=== PATIENT | male | born 1985 | race Caucasian/White ===

== ENCOUNTER 2018-01-20 13:34 | Inpatient (IN) | payer OTHER ==
[~2018-01-20] VITALS: Ht 177.8 cm; Wt 76.7 kg
[~2018-01-20 13:34] MED LIST: AUGMENTIN 875 M1 TAB PO; AUGMENTIN 875-1 EACH PO; AUGMENTIN250 MG/51 PO; BENADRYL E12.5 MG/5 PO; Benadryl PO; CLINDAMYCIN HC300 MG PO; DILANTIN100 M1 PO; DILANTIN50 MG PO; KEFLEX 250MG C250 MG PO; KEPPRA100 MG/ML PO; PHENOBARBITAL32.4 MG PO; PHENYTOIN PO; PREDNISONE 10MG10 M1 PO; PRELONE15 MG/5 ML PO; VIBRAMYCIN50 MG/5 ML PO; ZANTAC25 MG/ML PO; [UNRECOGNIZED DRUG - OTHER] PO
--- NOTE | 2018-01-20 13:48 | ED AMS/SEIZURE/WEAK/DIZZY ---
See Addendum History of Present Illness General Chief Complaint: Seizure Stated Complaint: BIBA SEIZURE Source: family, old records, EMS Exam Limitations: COGNITIVE IMPAIRMENT AND ACTIVE SEIZURE Vital Signs & Intake/Output Vital Signs & Intake/Output Vital Signs Date Time Temp Pulse Resp B/P B/P Pulse O2 O2 Flow FiO2 Mean Ox Delivery Rate 01/20 1806 97.9 75 18 147/81 99 Nasal 2.0L Cannula 01/20 1532 98.3 76 18 136/84 98 Nasal 2.0L Cannula 01/20 1340 98 Non ReBreather 01/20 1336 96.5 92 20 171/95 98 Non 10L ReBreather Allergies Coded Allergies: ceftriaxone (BLISTERS 04/23/16) cefuroxime (From Ceftin) (BLISTERS 04/23/16) cephalexin (BLISTERS 04/23/16) clindamycin (RASH, BLISTERS 04/23/16) Reconcile Medications Levetiracetam (Keppra) 100 MG/ML SOLUTION 3 TSP PO BID SEIZURES (Reported) Phenobarbital 32.4 MG TABLET 4 TAB PO QAM SEIZURE (Reported) Phenobarbital 32.4 MG TABLET 3 TAB PO QPM SEIZURES (Reported) Phenytoin (Dilantin) 100 MG CAPSULE 1.5 TAB PO QAM SEIZURE Phenytoin (Dilantin) 100 MG CAPSULE 2 TAB PO QPM SEIZURE Triage Nurses Notes Reviewed? yes HPI: Patient has a history of recurrent seizures. Patient had a seizure on Friday and then again on Friday. His neurologist has increased his Dilantin dose. Patient received the extra Dilantin in yesterday and again this morning. Patient again had a grand mal seizure. Patient received 2 mg IM by EMS. Patient was still actively seizing upon arrival to the emergency department. An IV was inserted and 2 mg IV of Ativan was delivered and the seizures slowly stopped. His mother, who is his caregiver, states that this seizure was similar to prior seizures. There is no known trauma. Her concern is that earlier today he was having episodic confusion. This was unusual for him. She states that they would be having a conversation and then he would just say a sentence that had nothing to do with what they were talking about. (Chase POLO,Gary Zuleta) Past History Travel History Traveled to [place] past 21 day No Medical History Any Pertinent Medical History? 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 Hx Contributory? No (Chase POLO,Gary Zuleta) Review of Systems Review of Systems Constitutional: Reports: see HPI. (Chase POLO,Gary Zuleta) Physical Exam Physical Exam General Appearance: well developed/nourished Head: atraumatic Eyes: Bilateral: PERRL. Ears, Nose, Throat: normal pharynx, normal ENT inspection Neck: normal inspection, supple, full range of motion Respiratory: normal breath sounds, chest non-tender, no respiratory distress, lungs clear Cardiovascular: regular rate/rhythm, normal peripheral pulses Gastrointestinal: normal bowel sounds, soft Extremities: normal range of motion Neurologic/Psych: awake Core Measures ACS in differential dx? No CVA/TIA Diagnosis No Sepsis Present: No Sepsis Focused Exam Completed? No (Chase POLO,Gary Zuleta) Progress Differential Diagnosis: electrolyte imbalance, seizure disorder Plan of Care: Orders Procedure Date/time Status Add-on Test (ER Only) 01/20 1515 Active DILANTIN 01/20 1347 Complete COMPREHENSIVE METABOLIC PANEL 01/20 1347 Complete CBC WITHOUT DIFFERENTIAL 01/20 1347 Complete Laboratory Tests 01/20/18 1356: Anion Gap 13, Estimated GFR > 60, BUN/Creatinine Ratio 8.0, Glucose 93, Calcium 8.9, Total Bilirubin 0.4, AST 20, ALT 22, Alkaline Phosphatase 90, Total Protein 7.5, Albumin 4.2, Globulin 3.3, Albumin/Globulin Ratio 1.3, CBC w Diff NO MAN DIFF REQ, RBC 4.46 L, MCV 89.5, MCH 29.8, MCHC 33.3, RDW 13.9, MPV 11.6 H, Gran % 76.5 H, Lymphocytes % 14.5 L, Monocytes % 8.3, Eosinophils % 0.4, Basophils % 0.3, Absolute Granulocytes 6.5, Absolute Lymphocytes 1.2, Absolute Monocytes 0.7 H, Absolute Eosinophils 0, Absolute Basophils 0, Phenytoin 11.6 01/20/18 1347: Ref Lab Test Result Pending, Levetiracetam Pending Initial ED EKG: none Hand-Off Endorsed To: Ankit Haney DO Endorsed Time: 1500 Pending: other (RE-EVAL) Comments: DR. LEON IS AT THE BEDSIDE. (Chase POLO,Gary Zuleta) Departure Departure Disposition: STILL A PATIENT Condition: Stable Clinical Impression Primary Impression: Seizure Referrals: Edmar Mtz MD Patient Has No Primary Care Dr (PCP/Family) Departure Forms: Customer Survey General Discharge Information (Chase POLO,Gary Zuleta) Departure Comments 01/20/18 6:32 PM The patient was signed out to me by Dr. Stone at 3 PM. He status post seizure. He was seen and evaluated by his neurologist. He received multiple doses of Ativan. When he is awake alert and ambulating he will be discharged and follow-up with the neurologist. (Ankit Haney DO)
[2018-01-20 14:24] LABS: ABSOLUTE BASOPHIL COUNT 0 /CUMM (0.0-0.2); ABSOLUTE EOSINOPHIL COUNT 0 /CUMM (0.0-0.7); ABSOLUTE GRANULOCYTE CT 6.5 /CUMM (1.4-6.5); ABSOLUTE LYMPH COUNT 1.2 /CUMM (1.2-3.4); ABSOLUTE MONOCYTE COUNT 0.7 /CUMM (0.10-0.60); BASOPHIL % 0.3 % (0.0-2.0); EOSINOPHIL % 0.4 % (0-5); GRANULOCYTE % 76.5 % (42.2-75.2); MEAN CORPUSCULAR HGB 29.8 PG (27.0-31.0); MEAN CORPUSCULAR HGB CONC 33.3 G/DL (33.0-37.0); MEAN CORPUSCULAR VOLUME 89.5 FL (80.0-94.0); MEAN PLATELET VOLUME 11.6 FL (7.4-10.4); PLATELET COUNT 228 /CUMM (130-400); RBC DISTRIBUTION WIDTH 13.9 % (11.5-14.5); RED BLOOD CELL CT 4.46 /CUMM (4.70-6.10); WHITE BLOOD CELL COUNT 8.5 /CUMM (4.8-10.8)
[2018-01-20 14:26] LABS: HEMATOCRIT 39.9 % (42-52)
--- NOTE | 2018-01-20 15:01 | Cons- Neurology ---
General Information and HPI Consulting Request Date of Consult: 01/20/18 Requested By: Gary Stone M.D. 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 The seizure was arrested with Versed and lorazepam, he was somewhat lethargic the next day but improved by evening when he had another seizure for which she was seen here at the [facility] ER. Dilantin level at that time was 9 and his dose increased by 50 mg. His postictal state cleared and by today he was in his usual form able to attend his work program and again eating and drinking normally but another seizure occurred. This one stopped on its own prior to arrival but he remains postictal According to his mother the last seizure was in October, the previous seizure over one year earlier. He reportedly always needed high Dilantin levels and has never been able to wean from phenobarbital. Dilantin dose of 150 MG twice daily was reduced not long ago to 150/125 due to some upset stomach and reported weight loss. Phenobarbital is 120 mg in the morning and 90 mg in the evening Keppra is 3 teaspoons (1500 MG) twice daily Allergies/Medications Allergies: Coded Allergies: ceftriaxone (BLISTERS 04/23/16) cefuroxime (From Ceftin) (BLISTERS 04/23/16) cephalexin (BLISTERS 04/23/16) clindamycin (RASH, BLISTERS 04/23/16) Home Med List: Levetiracetam (Keppra) 100 MG/ML SOLUTION 3 TSP PO BID SEIZURES (Reported) Phenobarbital 32.4 MG TABLET 4 TAB PO QAM SEIZURE (Reported) Phenobarbital 32.4 MG TABLET 3 TAB PO QPM SEIZURES (Reported) Phenytoin (Dilantin) 100 MG CAPSULE 1.5 TAB PO QAM SEIZURE Phenytoin (Dilantin) 100 MG CAPSULE 2 TAB PO QPM SEIZURE Current Medications: Current Medications Sig/Antelmo Start time Last Medication Dose Route Stop Time Status Admin Lorazepam 2 MG ONE ONE 01/20 1400 DC 01/20 IV 01/20 1401 1350 Lorazepam 0 .STK-MED ONE 01/20 1346 DC .ROUTE Phenytoin 500 MG ONCE ONE 01/20 1500 AC Sodium Chloride 100 ML IV 01/20 1529 Review of Systems Review of Systems: Unobtainable due to his postictal state Past History Travel History Traveled to [place] past 21 day No Medical History Neurological: seizure, ENCEPHALITIS COGNITIVE IMPAIRMENT EENT: NONE Cardiovascular: VARICOSE VEIN Respiratory: NONE Gastrointestinal: NONE Hepatic: NONE Renal: NONE Musculoskeletal: NONE Psychiatric: NONE Endocrine: NONE Blood Disorders: NONE Cancer(s): NONE 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 Psychosocial History Services at Home: None Exam & Diagnostic Data Vital Signs and I&O Vital Signs Date Time Temp Pulse Resp B/P B/P Pulse O2 O2 Flow FiO2 Mean Ox Delivery Rate 01/20 1336 96.5 92 20 171/95 98 Non 10L ReBreather Intake & Output 01/20 1600 01/20 0800 01/20 0000 Intake Total Output Total Balance Patient 180 lb Weight Weight Reported by Patient Measurement Method Physical Exam: On exam he is lying comfortably with good skin color, normal skin temperature, Ventimask in place. Breathing is regular. Occasional semipurposeful movement was noted in the left arm and leg but not on the right. His mother has noted this will occur after some of his seizures. Pupils midsize equal round and reactive to light Funduscopic unremarkable Eye movements full on the doll's maneuver Facial asymmetry Mildly reduced extremities Tendon reflexes reduced, bilateral Babinski signs Bilaterally to noxious stimuli Last 48 Hours of Lab Results: Laboratory Tests 01/20 1356 Chemistry Sodium (137 - 145 mmol/L) 143 Potassium (3.5 - 5.1 mmol/L) 3.7 Chloride (98 - 107 mmol/L) 104 Carbon Dioxide (22 - 30 mmol/L) 26 Anion Gap (5 - 16) 13 BUN (9 - 20 mg/dL) 4 L Creatinine (0.7 - 1.2 mg/dL) 0.5 L Estimated GFR (>60 ml/min) > 60 BUN/Creatinine Ratio (7 - 25 %) 8.0 Glucose (65 - 99 mg/dL) 93 Calcium (8.4 - 10.2 mg/dL) 8.9 Total Bilirubin (0.2 - 1.3 mg/dL) 0.4 AST (17 - 59 U/L) 20 ALT (21 - 72 U/L) 22 Alkaline Phosphatase (< 127 U/L) 90 Total Protein (6.3 - 8.2 g/dL) 7.5 Albumin (3.5 - 5.0 g/dL) 4.2 Globulin (1.9 - 4.2 gm/dL) 3.3 Albumin/Globulin Ratio (1.1 - 2.2 %) 1.3 Hematology CBC w Diff NO MAN DIFF REQ WBC (4.8 - 10.8 /CUMM) 8.5 RBC (4.70 - 6.10 /CUMM) 4.46 L Hgb (14.0 - 18.0 G/DL) 13.3 L Hct (42 - 52 %) 39.9 L MCV (80.0 - 94.0 FL) 89.5 MCH (27.0 - 31.0 PG) 29.8 MCHC (33.0 - 37.0 G/DL) 33.3 RDW (11.5 - 14.5 %) 13.9 Plt Count (130 - 400 /CUMM) 228 MPV (7.4 - 10.4 FL) 11.6 H Gran % (42.2 - 75.2 %) 76.5 H Lymphocytes % (20.5 - 51.1 %) 14.5 L Monocytes % (1.7 - 9.3 %) 8.3 Eosinophils % (0 - 5 %) 0.4 Basophils % (0.0 - 2.0 %) 0.3 Absolute Granulocytes (1.4 - 6.5 /CUMM) 6.5 Absolute Lymphocytes (1.2 - 3.4 /CUMM) 1.2 Absolute Monocytes (0.10 - 0.60 /CUMM) 0.7 H Absolute Eosinophils (0.0 - 0.7 /CUMM) 0 Absolute Basophils (0.0 - 0.2 /CUMM) 0 Toxicology Phenytoin (10.0 - 20.0 ug/mL) 11.6 Imaging/Other Studies: No neuro imaging on this admission Assessment/Plan Assessment: Breakthrough seizures in the setting of relatively low Dilantin levels in the patient is known to require high levels for seizure prevention. 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 Mtz after discharge Consult Acknowledgment - Thank you for your consult request.
--- NOTE | 2018-01-20 20:39 | RADIOLOGY REPORT ---
EXAMINATION: XR PORTABLE CHEST CLINICAL INFORMATION: Tachycardia. COMPARISON: Chest x-ray 10/25/2017 TECHNIQUE: Portable frontal view of the chest was obtained. FINDINGS: No significant abnormality is noted involving the heart, lungs, mediastinum, bony thorax or soft tissues. IMPRESSION: Unremarkable examination.
--- NOTE | 2018-01-20 22:07 | History & Physical ---
Eleazar POLO,[facility] 01/20/182206: General Information and HPI MD Statement: I have seen and personally examined CRISTO LOW and documented this H&P. The patient is a 32 year old M who presented with a patient stated chief complaint of [seizures per patient's family]. 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 Patient has a history of developmental delay in is not talking to strangers her his mom. The patient's mother states that his symptoms started again last Friday when he was at his work program and had a seizure. The patient was given Versed and Ativan. The patient then went to [facility] and had another seizure. He was then discharged home last Friday and around 11:30 PM had another seizure. He was then nicole to [place] and neurology increased his dilantin back to 150BID. The patient was discharged friday and the family thougth he seemed what they described as seeming off (saying random words ) friday night. The family states the patient was up all night at home and then had a seizure last night. He was then nicole back to the [place] ED. The family states that the patient had chest soreness which started night which the family attributed to the air gasping from seizures / gerd. The family also states that the patient has headaches which is typical after his seizures and he has some abd pain and decreased appetite. The family states he has frothing of the mouth when he seizes. The family states the patient denies any fevers, chills, night sweats, or changes in elimination Allergies/Medications Allergies: Coded Allergies: ceftriaxone (BLISTERS 04/23/16) cefuroxime (From Ceftin) (BLISTERS 04/23/16) cephalexin (BLISTERS 04/23/16) clindamycin (RASH, BLISTERS 04/23/16) Past History Travel History Traveled to [place] past 21 day No Medical History Neurological: seizure, ENCEPHALITIS COGNITIVE IMPAIRMENT EENT: NONE Cardiovascular: VARICOSE VEIN Respiratory: NONE Gastrointestinal: NONE Hepatic: NONE Renal: NONE Musculoskeletal: NONE Psychiatric: NONE Endocrine: NONE Blood Disorders: NONE Cancer(s): NONE 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 Psychosocial History Services at Home: None Review of Systems Review of Systems Constitutional: Reports: see HPI. Cardiovascular: Reports: chest pain (SORENESS). GI: Reports: see HPI (DECREASED APPETITE), abdominal pain. Neurological/Psychological: Reports: see HPI (SEIZURE, APHASIA?), headache. Exam & Diagnostic Data Last 24 Hrs of Vital Signs/I&O Vital Signs Date Time Temp Pulse Resp B/P B/P Pulse O2 O2 Flow FiO2 Mean Ox Delivery Rate 01/21 0714 100.0 88 18 132/100 96 01/21 0355 98.5 01/21 0239 101.1 01/21 0158 101.1 114 20 136/88 96 Room Air 01/20 2219 100.7 120 20 145/79 94 Room Air 01/20 1956 99.7 127 18 158/87 97 Room Air 01/20 1806 97.9 75 18 147/81 99 Nasal 2.0L Cannula 01/20 1532 98.3 76 18 136/84 98 Nasal 2.0L Cannula 01/20 1340 98 Non ReBreather 01/20 1336 96.5 92 20 171/95 98 Non 10L ReBreather Intake & Output 01/21 0800 01/21 0000 01/20 1600 Intake Total 1000 0 Output Total Balance 1000 0 Intake, IV 1000 Intake, Oral 0 Patient 175 lb 180 lb Weight Weight Estimated Reported by Patient Measurement Method Physical Exam General Appearance Alert, Pt not speaking to medical staff. Responding to questions via repeating from his mother Skin left lateral lower tibia ulcer? 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 P: #seizures with concerns of aspiration pna Received 600mg loading dilantin in ED Trops <.01 -NPO, formal swallow eval in AM -cont dialntin, keppra, and phenobarbital - neuro f/u outpatient -start IV unasyn -repeat trop ekg @ 7 #tachycardia Most likely 2/2 to possible aspiration pna - Repeat EKG and troponin @7 as stated above -f/u cardiology consult #DVT ppx Lovenox #Full code. As Ranked By This Provider Problem List: 1. Seizure Core Measures/Misc (08/03) Acute Coronary Syndrome ACS Diagnosis: No Congestive Heart Failure Congestive Heart Failure Diagnosis No Cerebrovascular Accident CVA/TIA Diagnosis: No VTE (View Protocol) VTE Risk Factors Acute Medical Illness No Mechanical VTE Prophylaxis d/t Other No VTE Pharm Prophylaxis d/t NA PharmProphylax ordered Sepsis (View protocol) Sepsis Present: No Sebastian POLO, [facility] 01/21/18 0342: General Information and HPI Allergies/Medications Home Med list Collagenase Clostridium Hist. (Santyl) 250 UNIT/GRAM OINT...G. 1 UNIT TP DAILY SKIN PROBLEMS (Reported) Levetiracetam (Keppra) 100 MG/ML SOLUTION 3 TSP PO BID SEIZURES (Reported) Phenobarbital 32.4 MG TABLET 4 TAB PO QAM SEIZURE (Reported) Phenobarbital 32.4 MG TABLET 3 TAB PO QPM SEIZURES (Reported) Phenytoin (Dilantin) 50 MG TAB.CHEW 3 TAB PO BID SEIZURES (Reported) Attending MD Review Statement Attending Statement Attending MD Statement: examined this patient, discuss w/resident/PA/UNDERWRITER MORTGAGE LOAN, agreed w/resident/PA/UNDERWRITER MORTGAGE LOAN, discussed with family, reviewed images, amended to note Attending Assessment/Plan: 32 yo special needs adult, with h/o seizure disorder diagnosed at age 3 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 Mother at bedside, provides history. Patient is followed by Neurologist Dr. Mtz as outpatient. Patient has been on dilantin 150 BID but this was reduced to 150 AM/125 PM a few weeks ago due to stomach issues. Patient was at his work program on Friday (), suffered a seizure, was taken to [facility] and was given versed and ativan. Mother feels patient is very sensitive to meds and should not have been given Versed. His dilantin level was 15 then. He remained confused on Friday (01/17) and did not eat well. He had another seizure and was brought in to [place] ER for evaluation, dilantin level was 9.9, he was advised an extra dose of dilantin (50 mg). Today, he felt better and was at his work program when he had another tonic- clonic seizure and was brought in. He received ativan by EMS. He had frothing at the mouth, but no tongue bite or urinary/fecal incontinence. Mother also notes that patient was dyspneic. On ER arrival, patient was post-ictal. Neurologist evaluated patient in ER. Patient was then noted to be febrile and tachycardic to 120's, which prompted this admission. Vitals: Tmax 101.1, HR 90-120's, BP 136/88, sats 96% RA. Exam: lethargic but follows verbal commands, dry mucous membranes, Neck supple, Chest few scant basilar rhonchi, Heart S1S2 tachycardic, regular, Abd soft, LE no edema. Labs unremarkable except for dilantin level of 11.6. CXR: unremarkable. EKG: sinus tachycardia. D-dimer is negative. Patient was given loading dose of dilantin in the ER. Assessment and plan: 1. Breakthrough seizures due to low dilantin levels 2. Aspiration pneumonitis, SIRS 3. Sinus tachycardia 2/2 fever, dehydration or aspiration. Dilantin would cause bradycardia. - 23 hour observation on Telemetry - Monitor for arrhythmias - Panculture - Aspiration, seizure and fall precautions - IV dilantin loading dose 600 mg given, resume 150 mg BID in AM - Resume keppra and phenobarbital at home dose - Neuro seen patient in ER, will follow as outpatient. - NPO for now, can resume diet once more awake, alert - IV fluids x 2 bags - IV Unasyn for aspiration switch to Augmentin on discharge - Check urinalysis - Repeat EKG and troponin in AM - Patient has no underlying cardiac issues. If tachycardia persists, ?consider CTA (D-dimer is negative) and Cardio consult. (Mother follows Dr. Potter and would like from their group). DVT ppx Lovenox. Full code. Observation Initial Note - I have personally examined CRISTO LOW on 01/21/18 at 0342. The disposition of CRISTO LOW is uncertain at this time and before a determination can be made, he requires a period of observation for the following reasons [Breakthrough seizures, dyspnea concerning for aspiration, sinus tachycardia of unclear etiology] Ambar Devlin 01/21/18 0427: Resident Review Statement Resident Statement: examined this patient, discussed with internet project manager, agreed with internet project manager, amended to note Other Findings: Mr Low is a 32 year old man was known to be in his usual state of health until a week ago. He has a past medical history of seizures secondary to viral encephalitis as a child. He follows up with Dr. Mtz-neurologist regularly. He was found to have an episode of seizures on 01/16/2018 after which she was evaluated at [facility]. The dose of Dilantin was decreased at that time after checking his Dilantin levels. He subsequently had another seizure and was evaluated [facility] the following day, when his Dilantin level was increased again. After having a normal day, he had another episode of seizures at work day program when he was brought to the hospital. History was obtained from the patient's mother and his brother, who reported that Mr. Segovia complained about congestion in the chest for the last few days. He did not have any fever, altered mental status, chills. He remained lethargic, and did not involve in conversation during this encounter. At the time of admission-vitals temperature 96.5, pulse rate 92, blood pressure 171/95 (improved to 136/84) his pulse ox 98% on 10 L (decreased to 2 L). He does not use oxygen at baseline. On examination, he was lethargic, but following commands appropriately. On examination- General Exam: Slightly lethargic, orientation could not be checked,No acute distress, Skin: desqamative rashes + on lower extremities, no breakdown HEENT: PERRLA, EOMI ( couldnt be done ) Neck: Supple, No JVD No cervical lymphadenopathy CVS: Reg Rate, Normal S1,S2, No MGR Resp: Normal air entry, no ronchi/rales, kyphosis Abdomen: Soft, No tenderness, Normal Bowel Sounds Neuro: Normal Speech, Strength 5/5 b/l x 4 extremities, Sensation intact, CN III -XII NL, Reflexes 2+ Extremities: No cyanosis, no pedal edema Pertinent lab findings-WBC 8.5, hemoglobin 13.3, hematocrit 39.9, platelets 228, sodium 143, potassium 3.7, BUN 4, serum creatinine 0.5 (is likely malnutrition), AST 20, ALT 22, alkaline phosphatase 90, phenytoin level XI.6, Keppra level is pending. CT chest-within normal limits. Etiology in this case is likely due to inadequate phenytoin levels, and is likely sensitive to appropriate phenytoin requirement for suppression of seizures. In regards to his tachycardia, could be due to aspiration pneumonitis or dehydration or accommodation of both. Problem list: #1 history of viral encephalitis #2 seizures #3 aspiration pneumonitis #4 2 SIRS criteria+ Plan: #1 seizures -Continue Keppra -Continue Dilantin 150 mg by mouth twice a day -Phenobarbital 120 mg in a.m., 90 mg in p.m. -Seizure precautions Neurology consult #2 aspiration pneumonitis -Start the patient on Unasyn, pending cultures -If the patient improves in the next 24 hours, discontinue antibiotics -Monitor vitals closely Housekeeping: #1 DVT prophylaxis-subcutaneous heparin #2 allergies-confirmed that the patient is not allergic to penicillin #3 code-full code #4 consults-neurology, swallow evaluation #5 precautions-seizure, swallow.
[2018-01-20] MEDS ORDERED: DILANTIN50 MG PO (22:16)
[2018-01-20] MEDS ORDERED: SANTYL30 GM TP (22:17)
[2018-01-21 01:58] VITALS: BP 136/88
[2018-01-21 07:14] VITALS: BP 132/100
[2018-01-21 08:19] LABS: ABSOLUTE BASOPHIL COUNT 0 /CUMM (0.0-0.2); ABSOLUTE EOSINOPHIL COUNT 0 /CUMM (0.0-0.7); ABSOLUTE GRANULOCYTE CT 6.9 /CUMM (1.4-6.5); ABSOLUTE MONOCYTE COUNT 0.8 /CUMM (0.10-0.60); BASOPHIL % 0.3 % (0.0-2.0); EOSINOPHIL % 0.3 % (0-5); GRANULOCYTE % 70.4 % (42.2-75.2); HEMATOCRIT 36.7 % (42-52); MEAN CORPUSCULAR HGB 30.4 PG (27.0-31.0); MEAN CORPUSCULAR HGB CONC 33.5 G/DL (33.0-37.0); MEAN CORPUSCULAR VOLUME 90.5 FL (80.0-94.0); MEAN PLATELET VOLUME 11.2 FL (7.4-10.4); PLATELET COUNT 178 /CUMM (130-400); RED BLOOD CELL CT 4.05 /CUMM (4.70-6.10); WHITE BLOOD CELL COUNT 9.8 /CUMM (4.8-10.8)
--- NOTE | 2018-01-21 09:56 | PN- Housestaff ---
Sumeet POLO,[place] 01/21/18 0956: Subjective Follow-up For: 1. Breakthrough seizures due to low dilantin levels 2. Aspiration pneumonitis, SIRS 3. Sinus tachycardia Tele-Events Since Last Visit: No acute events, heart rate 88 Subjective: The patient was seen and examined at bedside, he is somnolent and sleepy, his mother at the bedside states that he does not speak to strangers. No acute overnight events Review of Systems Constitutional: Denies: no symptoms, see HPI. Objective Last 24 Hrs of Vital Signs/I&O Vital Signs Date Time Temp Pulse Resp B/P B/P Pulse O2 O2 Flow FiO2 Mean Ox Delivery Rate 01/21 0714 100.0 88 18 132/100 96 01/21 0355 98.5 01/21 0239 101.1 01/21 0158 101.1 114 20 136/88 96 Room Air 01/20 2219 100.7 120 20 145/79 94 Room Air 01/20 1956 99.7 127 18 158/87 97 Room Air 01/20 1806 97.9 75 18 147/81 99 Nasal 2.0L Cannula 01/20 1532 98.3 76 18 136/84 98 Nasal 2.0L Cannula 01/20 1340 98 Non ReBreather 01/20 1336 96.5 92 20 171/95 98 Non 10L ReBreather Intake & Output 01/21 1600 01/21 0800 01/21 0000 Intake Total 650 1000 Output Total 0 Balance 650 1000 Intake, IV 600 1000 Intake, Oral 50 Output, Urine 0 Patient 175 lb Weight Weight Estimated Measurement Method Physical Exam General Appearance: sleepy and drowsy HEENT: Atraumatic, PERRLA, EOMI, Mucous Membr. 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 Most likely due to recent reduction in the Dilantin dose from 150-125 as per the mother. Patient had 3 seizures this week. Dilantin level was running low and he came to the ED on 0 3/0 3 was 9.9 and he was advised to take an extra dose of Dilantin 50 mg Patient has been on dilantin 150 BID but this was reduced to 150 AM/125 PM a few weeks ago due Patient was given loading dose of dilantin in the ER. Assessment and plan: 1. Breakthrough seizures due to low dilantin levels 2. Aspiration pneumonitis, SIRS 2 3. Sinus tachycardia improved 2/2 fever, dehydration or aspiration. -Continue to monitor on Telemetry -Follow-up on panculture We will reload him with Dilantin 500 mg IV once Continue Dilantin 150 mg twice daily p.o. Phenobarbital liquid p.o. 120 every morning Phenobarbital liquid 90 mg p.o. every afternoon Keppra 1500 mg twice daily p.o. Follow-up on your recommendation Continue IV Unasyn for possible aspiration pneumonia Follow-up on swallow eval - Aspiration, seizure and fall precautions DVT ppx Lovenox. Full code. Problem List: 1. Seizure Pain Ratin Pain Location: N/A Pain Goal: Remain pain free Pain Plan: pathway Tomorrow's Labs & Rationales: cbc bep DVT/Prophylaxis: mechanical, pharmacological Valerie Raymond 01/21/18 1520: Attending MD Review Statement Attending Statement Attending MD Statement: examined this patient, discuss w/resident/PA/QUANTITATIVE SOFTWARE ENGINEER, agreed w/resident/PA/QUANTITATIVE SOFTWARE ENGINEER, discussed with family, reviewed EMR data (avail), discussed with nursing, discussed with case mgmt Attending Assessment/Plan: d/w Dr tidwell from neurology . will load again with dilantin 500mg and recheck levels in am. Pt still having some tremor in RUE likely focal seizures. d/w pts mother at bedside the care plan.
--- NOTE | 2018-01-21 13:39 | PN- Neurology ---
Subjective Subjective: No further generalized seizures. DPH level yesterday before loading dose was 11.6 Review of Systems: limited by mental status, denied pain or headache Objective Vital Signs and I&Os Vital Signs Date Time Temp Pulse Resp B/P B/P Pulse O2 O2 Flow FiO2 Mean Ox Delivery Rate 01/21 0714 100.0 88 18 132/100 96 01/21 0355 98.5 01/21 0239 101.1 01/21 0158 101.1 114 20 136/88 96 Room Air 01/20 2219 100.7 120 20 145/79 94 Room Air 01/20 1956 99.7 127 18 158/87 97 Room Air 01/20 1806 97.9 75 18 147/81 99 Nasal 2.0L Cannula 01/20 1532 98.3 76 18 136/84 98 Nasal 2.0L Cannula 01/20 1340 98 Non ReBreather 01/20 1336 96.5 92 20 171/95 98 Non 10L ReBreather Intake & Output 01/21 1600 01/21 0800 01/21 0000 01/20 1600 01/20 0800 01/20 0000 Intake Total 650 1000 0 Output Total 0 Balance 650 1000 0 Intake, IV 600 1000 Intake, Oral 50 0 Output, Urine 0 Patient 175 lb 180 lb Weight Weight Estimated Reported by Patient Measurement Method Physical Exam: somnolent. slow to respond, one word answers [id number] EOMI moving right side but less than left minor twitching fingers of right hand, intermittent Current Medications: Current Medications Sig/Antelmo Start time Last Medication Dose Route Stop Time Status Admin Acetaminophen 650 MG .STK-MED ONE 01/21 0237 DC PO 01/21 0238 Acetaminophen 650 MG Q8P PRN 01/20 2245 AC 01/21 PO 0239 Ampicillin Sodium/ 1,500 MG Q6 01/20 2359 AC 01/21 Sulbactam Sodium IV 1212 Sodium Chloride 100 ML Heparin Sodium 5,000 UNIT Q8 01/21 0600 AC 01/21 (Porcine) SC 0536 Levetiracetam 1,500 MG BID 01/20 2301 AC 01/21 PO 0050 Lorazepam 2 MG ONE ONE 01/20 1400 DC 01/20 IV 01/20 1401 1350 Lorazepam 0 .STK-MED ONE 01/20 1346 DC .ROUTE Phenobarbital 120 MG QAM 01/22 1000 AC PO Phenobarbital 129.6 MG QAM 01/21 1000 DC 01/21 PO 1041 Phenobarbital 90 MG QPM 01/21 0145 AC 01/21 PO 0220 Phenobarbital 90 MG QPM 01/20 2315 DC PO Phenytoin 150 MG BID 01/21 2200 AC PO Phenytoin 150 MG BID 01/21 1000 CAN PO Phenytoin 150 MG BID 01/21 1000 DC 01/21 PO 1014 Phenytoin 100 MG ONCE ONE 01/20 2300 DC 01/20 Sodium Chloride 50 ML IV 01/20 2331 2345 Phenytoin 500 MG ONCE ONE 01/20 1500 DC 01/20 Sodium Chloride 100 ML IV 01/20 1529 1531 Sodium Chloride 1,000 ML 100 MLS/HR 01/20 2310 DC 01/21 IV 01/21 0909 0221 Sodium Chloride 1,000 ML .Q20H 01/20 2245 DC IV Sodium Chloride 1,000 ML BOLUS ONE 01/20 2015 DC 01/20 IV 01/20 Results Last 24 Hours of Lab Results: Laboratory Tests 01/21 Chemistry Sodium (137 - 145 mmol/L) 145 Potassium (3.5 - 5.1 mmol/L) 3.4 L Chloride (98 - 107 mmol/L) 107 Carbon Dioxide (22 - 30 mmol/L) 26 Anion Gap (5 - 16) 12 BUN (9 - 20 mg/dL) 6 L Creatinine (0.7 - 1.2 mg/dL) 0.6 L Estimated GFR (>60 ml/min) > 60 BUN/Creatinine Ratio (7 - 25 %) 10.0 Magnesium (1.6 - 2.3 mg/dL) 1.8 Troponin I (<0.11 ng/ml) < 0.01 < 0.01 Coagulation D-Dimer High Sensitivty (0 - 243 ng/ml) 239 Hematology CBC w Diff NO MAN DIFF REQ WBC (4.8 - 10.8 /CUMM) 9.8 RBC (4.70 - 6.10 /CUMM) 4.05 L Hgb (14.0 - 18.0 G/DL) 12.3 L Hct (42 - 52 %) 36.7 L MCV (80.0 - 94.0 FL) 90.5 MCH (27.0 - 31.0 PG) 30.4 MCHC (33.0 - 37.0 G/DL) 33.5 RDW (11.5 - 14.5 %) 14.0 Plt Count (130 - 400 /CUMM) 178 MPV (7.4 - 10.4 FL) 11.2 H Gran % (42.2 - 75.2 %) 70.4 Lymphocytes % (20.5 - 51.1 %) 20.7 Monocytes % (1.7 - 9.3 %) 8.3 Eosinophils % (0 - 5 %) 0.3 Basophils % (0.0 - 2.0 %) 0.3 Absolute Granulocytes (1.4 - 6.5 /CUMM) 6.9 H Absolute Lymphocytes (1.2 - 3.4 /CUMM) 2.0 Absolute Monocytes (0.10 - 0.60 /CUMM) 0.8 H Absolute Eosinophils (0.0 - 0.7 /CUMM) 0 Absolute Basophils (0.0 - 0.2 /CUMM) 0 01/20 1356 1347 Chemistry Sodium (137 - 145 mmol/L) 143 Potassium (3.5 - 5.1 mmol/L) 3.7 Chloride (98 - 107 mmol/L) 104 Carbon Dioxide (22 - 30 mmol/L) 26 Anion Gap (5 - 16) 13 BUN (9 - 20 mg/dL) 4 L Creatinine (0.7 - 1.2 mg/dL) 0.5 L Estimated GFR (>60 ml/min) > 60 BUN/Creatinine Ratio (7 - 25 %) 8.0 Glucose (65 - 99 mg/dL) 93 Calcium (8.4 - 10.2 mg/dL) 8.9 Total Bilirubin (0.2 - 1.3 mg/dL) 0.4 AST (17 - 59 U/L) 20 ALT (21 - 72 U/L) 22 Alkaline Phosphatase (< 127 U/L) 90 Troponin I Cancelled Total Protein (6.3 - 8.2 g/dL) 7.5 Albumin (3.5 - 5.0 g/dL) 4.2 Globulin (1.9 - 4.2 gm/dL) 3.3 Albumin/Globulin Ratio (1.1 - 2.2 %) 1.3 Hematology CBC w Diff NO MAN DIFF REQ WBC (4.8 - 10.8 /CUMM) 8.5 RBC (4.70 - 6.10 /CUMM) 4.46 L Hgb (14.0 - 18.0 G/DL) 13.3 L Hct (42 - 52 %) 39.9 L MCV (80.0 - 94.0 FL) 89.5 MCH (27.0 - 31.0 PG) 29.8 MCHC (33.0 - 37.0 G/DL) 33.3 RDW (11.5 - 14.5 %) 13.9 Plt Count (130 - 400 /CUMM) 228 MPV (7.4 - 10.4 FL) 11.6 H Gran % (42.2 - 75.2 %) 76.5 H Lymphocytes % (20.5 - 51.1 %) 14.5 L Monocytes % (1.7 - 9.3 %) 8.3 Eosinophils % (0 - 5 %) 0.4 Basophils % (0.0 - 2.0 %) 0.3 Absolute Granulocytes (1.4 - 6.5 /CUMM) 6.5 Absolute Lymphocytes (1.2 - 3.4 /CUMM) 1.2 Absolute Monocytes (0.10 - 0.60 /CUMM) 0.7 H Absolute Eosinophils (0.0 - 0.7 /CUMM) 0 Absolute Basophils (0.0 - 0.2 /CUMM) 0 Miscellaneous Ref Lab Test Result Pending Toxicology Phenytoin (10.0 - 20.0 ug/mL) 11.6 Levetiracetam Pending Recent Imaging Studies: none Assessment/Plan Assessment: Breakthrough seizures with low (for patient) Dilantin levels level after loading dose was not repeated Possible continued mild focal motor seizures, 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
[2018-01-21 14:42] VITALS: BP 134/96
--- NOTE | 2018-01-21 15:55 | Patient Discharge Instructions ---
Discharge Instructions General Discharge Information You were seen/treated for: Seizure Possible aspiration pneumonia Special Instructions: 1please follow-up with your PCP in 1 week of discharge 2please follow-up with your neurologist in 1 week of discharge 3please get Dilantin level checked in 1 week of discharge AND FAX RESULTS TO DR. KIMBROUGH Diet Continue normal diet: Yes Activity Full Activity/No Limits: Yes Acute Coronary Syndrome Inclusion Criteria At DC or during hospital stay patient has or had the following: ACS DIAGNOSIS No Discharge Core Measures Meds if any: Prescribed or Continued at Discharge Meds if any: NOT Prescribed or Continued at Discharge Congestive Heart Failure Inclusion Criteria At DC or during hospital stay patient has or had the following: CHF DIAGNOSIS No Discharge Core Measures Meds if any: Prescribed or Continued at Discharge Meds if any: NOT Prescribed or Continued at Discharge Cerebrovascular accident Inclusion Criteria At DC or during hospital stay patient has or had the following: CVA/TIA Diagnosis No Discharge Core Measures Meds if any: Prescribed or Continued at Discharge Meds if any: NOT Prescribed or Continued at Discharge Venous thromboembolism Inclusion Criteria VTE Diagnosis No VTE Type NONE VTE Confirmed by (Test) NONE Discharge Core Measures - Per Current guidelines, there needs to be overlap - treatment for the first 5 days of Warfarin therapy. - If discharged on Warfarin prior to 5 days of - overlap therapy, the patient will need to be - assessed for post discharge needs including - *Post discharge parental anticoagulation - *Warfarin and/or parental anticoagulation education - *Follow up date to check INR post discharge At least 5 days overlap therapy as Inpatient No Meds if any: Prescribed or Continued at Discharge Note: Overlap Therapy is Warfarin and Anticoagulant Meds if any: NOT Prescribed or Continued at Discharge
[2018-01-21 22:48] VITALS: BP 136/80
--- NOTE | 2018-01-22 07:15 | PN- Housestaff ---
Sumeet POLO,[place] 01/22/18 0715: Subjective Follow-up For: 1. seizures due to low dilantin levels 2. Aspiration pneumonitis, SIRS 3. Sinus tachycardia Tele-Events Since Last Visit: Sinus rhythmsinus tachycardia [id number] Subjective: The patient was seen and examined at bedside, he looks more alert and awake today however he still refuses to speak. He passed his swallow evaluation and was started on a regular diet Review of Systems Constitutional: Reports: see HPI. Objective Last 24 Hrs of Vital Signs/I&O Vital Signs Date Time Temp Pulse Resp B/P B/P Pulse O2 O2 Flow FiO2 Mean Ox Delivery Rate 01/22 0741 98.4 81 16 140/92 96 Room Air 01/22 0000 Room Air Room Air 01/21 2248 98.2 92 22 136/80 95 01/21 1442 99.5 98 18 134/96 95 Room Air Intake & Output 01/22 1600 01/22 0800 01/22 0000 Intake Total 200 Output Total 400 Balance -200 Intake, IV 200 Output, Urine 400 Patient 170 lb 170 lb Weight Physical Exam General Appearance: Alert, Cooperative, No Acute Distress HEENT: Atraumatic, PERRLA, EOMI, Mucous Membr. 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 Most likely due to recent reduction in the Dilantin dose from 150-125 as per the mother. Patient had 3 seizures this week. Dilantin level was running low and he came to the ED on 0 3/0 3 was 9.9 and he was advised to take an extra dose of Dilantin 50 mg Patient has been on dilantin 150 BID but this was reduced to 150 AM/125 PM a few weeks ago due Patient was given loading dose of dilantin in the ER. Assessment and plan: 1. seizures due to low dilantin levels 2. Aspiration pneumonitis, SIRS 2 3. Sinus tachycardia improved 2/2 fever, dehydration or aspiration. -Continue to monitor on Telemetry -Follow-up on panculture Continue Dilantin 150 mg twice daily p.o. Phenobarbital liquid p.o. 120 every morning Phenobarbital liquid 90 mg p.o. every afternoon Keppra 1500 mg twice daily p.o. Follow-up on neuro recommendation Continue IV Unasyn for possible aspiration pneumonia Past swallow eval, will start regular diet - Aspiration, seizure and fall precautions DVT ppx Lovenox. Full code. Regular diet Problem List: 1. Seizure Pain Ratin Pain Location: N/A Pain Goal: Remain pain free Pain Plan: pathway Tomorrow's Labs & Rationales: cbc bep Jaren Contreras MD 01/22/18 2211: Attending MD Review Statement Attending Statement Attending MD Statement: examined this patient, discuss w/resident/PA/CONVERTIBLE POWER SHOVEL OPERATOR, agreed w/resident/PA/CONVERTIBLE POWER SHOVEL OPERATOR, discussed with family, reviewed EMR data (avail), discussed with case mgmt, amended to note Attending Assessment/Plan: The patient was seen and discussed with house staff and family. More alert today. Neurology input appreciated. Anti-seizure meds as per Neurology. Note- the patient does not have PCP and lives near Dr. Chris in [place]. May suggest PCP upon discharge.
[2018-01-22 07:41] VITALS: BP 140/92
[2018-01-22 13:24] LABS: ABSOLUTE BASOPHIL COUNT 0.1 /CUMM (0.0-0.2); ABSOLUTE EOSINOPHIL COUNT 0.1 /CUMM (0.0-0.7); ABSOLUTE GRANULOCYTE CT 5.4 /CUMM (1.4-6.5); ABSOLUTE LYMPH COUNT 1.3 /CUMM (1.2-3.4); ABSOLUTE MONOCYTE COUNT 0.6 /CUMM (0.10-0.60); BASOPHIL % 0.8 % (0.0-2.0); EOSINOPHIL % 0.8 % (0-5); GRANULOCYTE % 72.7 % (42.2-75.2); HEMATOCRIT 35.8 % (42-52); MEAN CORPUSCULAR HGB 30.2 PG (27.0-31.0); MEAN CORPUSCULAR HGB CONC 33.4 G/DL (33.0-37.0); MEAN CORPUSCULAR VOLUME 90.3 FL (80.0-94.0); MEAN PLATELET VOLUME 11.2 FL (7.4-10.4); PLATELET COUNT 188 /CUMM (130-400); RBC DISTRIBUTION WIDTH 13.6 % (11.5-14.5); RED BLOOD CELL CT 3.97 /CUMM (4.70-6.10); WHITE BLOOD CELL COUNT 7.4 /CUMM (4.8-10.8)
[2018-01-22 14:15] VITALS: BP 128/72
--- NOTE | 2018-01-22 16:01 | PN- Neurology ---
Subjective Subjective: Better, much more awake, saying a few words. According to his brother has not been out of bed much yet. Review of Systems: No complaints, no nausea or headache Objective Vital Signs and I&Os Vital Signs Date Time Temp Pulse Resp B/P B/P Pulse O2 O2 Flow FiO2 Mean Ox Delivery Rate 01/22 1415 99.3 95 20 128/72 96 Room Air 01/22 0741 98.4 81 16 140/92 96 Room Air 01/22 0000 Room Air Room Air 01/21 2248 98.2 92 22 136/80 95 Intake & Output 01/22 1600 01/22 0800 01/22 0000 01/21 1600 01/21 0800 01/21 0000 Intake Total 340 200 292 128 7733 Output Total 400 0 Balance 340 -200 560 164 7922 Intake, IV 100 200 695 317 5514 Intake, Oral 240 60 50 Output, Urine 400 0 Patient 170 lb 170 lb 175 lb Weight Weight Estimated Measurement Method Physical Exam: Eyes remained open, appears somewhat lethargic, follows simple commands. Eye movements full pupils large equal round and reactive to light. No further twitching and no lateralized weakness noted. Current Medications: Current Medications Sig/Antelmo Start time Last Medication Dose Route Stop Time Status Admin Acetaminophen 650 MG Q8P PRN 01/20 2245 AC 01/21 PO 0239 Ampicillin Sodium/ 1,500 MG Q6 01/20 2359 AC 01/22 Sulbactam Sodium IV 1209 Sodium Chloride 100 ML Heparin Sodium 5,000 UNIT Q8 01/21 0600 AC 01/22 (Porcine) SC 1327 Levetiracetam 1,500 MG BID 01/20 2301 AC 01/22 PO 0820 Lorazepam 0.5 MG ONCE ONE 01/21 1930 DC 01/21 IV 01/21 193 1951 Phenobarbital 120 MG QAM 01/22 1000 AC 01/22 PO 1041 Phenobarbital 90 MG QPM 01/21 0145 AC 01/21 PO 2153 Phenytoin 300 MG ONE ONE 01/22 1430 DC 01/22 PO 01/22 1431 1544 Phenytoin 150 MG BID 01/21 2200 AC 01/22 PO 0820 Results Last 24 Hours of Lab Results: Laboratory Tests 01/22 01/22 1245 0710 Chemistry Sodium (137 - 145 mmol/L) 146 H Potassium (3.5 - 5.1 mmol/L) 4.0 Chloride (98 - 107 mmol/L) 108 H Carbon Dioxide (22 - 30 mmol/L) 25 Anion Gap (5 - 16) 13 BUN (9 - 20 mg/dL) 10 Creatinine (0.7 - 1.2 mg/dL) 0.5 L Estimated GFR (>60 ml/min) > 60 BUN/Creatinine Ratio (7 - 25 %) 20.0 Hematology WBC (4.8 - 10.8 /CUMM) 7.4 RBC (4.70 - 6.10 /CUMM) 3.97 L Hgb (14.0 - 18.0 G/DL) 12.0 L Hct (42 - 52 %) 35.8 L MCV (80.0 - 94.0 FL) 90.3 MCH (27.0 - 31.0 PG) 30.2 MCHC (33.0 - 37.0 G/DL) 33.4 RDW (11.5 - 14.5 %) 13.6 Plt Count (130 - 400 /CUMM) 188 MPV (7.4 - 10.4 FL) 11.2 H Gran % (42.2 - 75.2 %) 72.7 Lymphocytes % (20.5 - 51.1 %) 17.9 L Monocytes % (1.7 - 9.3 %) 7.8 Eosinophils % (0 - 5 %) 0.8 Basophils % (0.0 - 2.0 %) 0.8 Absolute Granulocytes (1.4 - 6.5 /CUMM) 5.4 Absolute Lymphocytes (1.2 - 3.4 /CUMM) 1.3 Absolute Monocytes (0.10 - 0.60 /CUMM) 0.6 Absolute Eosinophils (0.0 - 0.7 /CUMM) 0.1 Absolute Basophils (0.0 - 0.2 /CUMM) 0.1 Toxicology Phenytoin (10.0 - 20.0 ug/mL) 14.4 Recent Imaging Studies: After 500 mg extra Dilantin loading level jessica only from -14 Assessment/Plan Assessment: Seizures, series of 3 or 4 over weekend, resolved Postictal state, improving Subtherapeutic (for him) Dilantin level Plan: Additional 300 MG ordered today Check Dilantin level tomorrow morning If less than 18 would give 200 mg additional tomorrow morning and if level 15 or less would give 300 mg extra tomorrow. If mental status and ability to ambulate allow he could be discharged home for outpatient management He should have a follow-up Dilantin level on his current 150 MG twice daily dose in about 1 week after discharge Will be away, if problems arise Dr. Mtz will be covering [phone]
--- NOTE | 2018-01-22 18:43 | ELECTROENCEPHALOGRAM REPORT ---
Electroencephalogram Report Electroencephalogram Results Date of service: 01/22/18 Attending MD: Mandi POLO,Valerie Crisostomo Radio Repairman: Matt Parra EEG Number: [id number] Test Utilizes: 10-20 system, 21 lead 18 channel digital recording Pertinent Hx/Physical/Neuro Findings/Clin Diagnosis: Recent breakthrough seizues Inpatient Medications: Current Medications Sig/Antelmo Start time Last Medication Dose Route Stop Time Status Admin Acetaminophen 650 MG Q8P PRN 01/20 2245 AC 01/21 PO 0239 Ampicillin Sodium/ 1,500 MG Q6 01/20 2359 AC 01/22 Sulbactam Sodium IV 1747 Sodium Chloride 100 ML Heparin Sodium 5,000 UNIT Q8 01/21 0600 AC 01/22 (Porcine) SC 1327 Levetiracetam 1,500 MG BID 01/20 2301 AC 01/22 PO 0820 Lorazepam 0.5 MG ONCE ONE 01/21 1930 DC 01/21 IV 01/21 1931 1951 Patient Medication 1 ED ONE ONE 01/22 1630 DC 01/22 Teaching ED 01/22 1631 1638 Phenobarbital 120 MG QAM 01/22 1000 AC 01/22 PO 1041 Phenobarbital 90 MG QPM 01/21 0145 AC 01/21 PO 2153 Phenytoin 300 MG ONE ONE 01/22 1430 DC /08 PO /08 1431 1544 Phenytoin 150 MG BID 01/21 2200 AC / PO 0820 Interpretation: The background is dominated by moderate amplitude slow activity in the theta range with some irregular intermixed faster alpha and frontally dominant low amplitude beta. Occasional sharp waves are seen in the left temporal region phase reversing at T3. There are no electrographic seizures. Activation procedures were not performed. Impression: Abnormal due to moderate generalized slowing of the backgrounds with left anterior temporal sharp waves suggesting a potential left hemispheric seizure focus.
[2018-01-22 22:08] VITALS: BP 166/98
[2018-01-23 08:10] LABS: ABSOLUTE BASOPHIL COUNT 0 /CUMM (0.0-0.2); ABSOLUTE EOSINOPHIL COUNT 0.1 /CUMM (0.0-0.7); ABSOLUTE GRANULOCYTE CT 4.1 /CUMM (1.4-6.5); ABSOLUTE MONOCYTE COUNT 0.5 /CUMM (0.10-0.60); BASOPHIL % 0.4 % (0.0-2.0); EOSINOPHIL % 1.9 % (0-5); GRANULOCYTE % 60.6 % (42.2-75.2); HEMATOCRIT 38.5 % (42-52); MEAN CORPUSCULAR HGB 30.1 PG (27.0-31.0); MEAN CORPUSCULAR HGB CONC 33.3 G/DL (33.0-37.0); MEAN CORPUSCULAR VOLUME 90.4 FL (80.0-94.0); MEAN PLATELET VOLUME 11.1 FL (7.4-10.4); PLATELET COUNT 199 /CUMM (130-400); RED BLOOD CELL CT 4.26 /CUMM (4.70-6.10); WHITE BLOOD CELL COUNT 6.7 /CUMM (4.8-10.8)
--- NOTE | 2018-01-23 10:15 | PN- Housestaff ---
Sumeet POLO,[place] 01/23/18 1015: Subjective Follow-up For: 1. seizures due to low dilantin levels 2. Aspiration pneumonia 3. Sinus tachycardia-improved Tele-Events Since Last Visit: Sinus rhythm 82, 0.08, 0.16 Subjective: The patient was seen and examined at bedside, his mother was concerned because he was not answering hair and having eye rolling movement which she think it might be due to that he is starting to have another seizure. Patient preferred only to take liquid diet however he passed his swallow eval Review of Systems Constitutional: Reports: see HPI. Denies: no symptoms. Objective Last 24 Hrs of Vital Signs/I&O Vital Signs Date Time Temp Pulse Resp B/P B/P Pulse O2 O2 Flow FiO2 Mean Ox Delivery Rate 01/22 2208 98.6 99 20 166/98 96 Room Air 01/22 1415 99.3 95 20 128/72 96 Room Air Intake & Output 01/23 1600 01/23 0800 01/23 0000 Intake Total 100 328 Output Total Balance 100 328 Intake, IV 100 Intake, Oral 328 Patient 167 lb Weight Weight Bed scale Measurement Method Physical Exam General Appearance: Alert, Cooperative, No Acute Distress HEENT: Atraumatic, PERRLA, EOMI, Mucous Membr. 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 Most likely due to recent reduction in the Dilantin dose from 150-125 as per the mother. Patient had 3 seizures this week. Dilantin level was running low and he came to the ED on 0 3/0 3 was 9.9 and he was advised to take an extra dose of Dilantin 50 mg Patient has been on dilantin 150 BID but this was reduced to 150 AM/125 PM a few weeks ago due Assessment and plan: 1. seizures due to low dilantin levels 2. Aspiration pneumonitis, SIRS 2 3. Sinus tachycardia improved 2/2 fever, dehydration or aspiration. 4. hypernatremia -Continue to monitor on Telemetry Blood culture negative The patient was found to have eye rolling movement which was concerning for his mother that he might be starting a new seizure. Dilantin level was 18.2, the goal is 20 Was given loading dose of Dilantin IV 300 mg after I discussed with Dr. Archibald Continue Dilantin 150 mg twice daily p.o. Phenobarbital liquid p.o. 120 every morning Phenobarbital liquid 90 mg p.o. every afternoon Keppra 1500 mg twice daily p.o. Patient was found to have mild hypernatremia most likely due to poor oral intake Was encouraged to increase his p.o. intake Follow-up on neuro recommendation Continue IV Unasyn for possible aspiration pneumonia Past swallow eval, will start regular diet - Aspiration, seizure and fall precautions DVT ppx Lovenox. Full code. Regular diet EEG showed: Abnormal due to moderate generalized slowing of the backgrounds with left anterior temporal sharp waves suggesting a potential left hemispheric seizure focus. Problem List: 1. Seizure Pain Ratin Pain Location: N/A Pain Goal: Remain pain free Pain Plan: pathway Tomorrow's Labs & Rationales: cbc bep DVT/Prophylaxis: mechanical, pharmacological Valerie Raymond 01/23/18 1423: Attending MD Review Statement Attending Statement Attending MD Statement: examined this patient, discuss w/resident/PA/STUDENT SERVICES COORDINATOR, agreed w/resident/PA/STUDENT SERVICES COORDINATOR, reviewed EMR data (avail), discussed with nursing, discussed with case mgmt Attending Assessment/Plan: Given extra 300mg dilantin. encouraged pt to eat. will repeat dilantin level in am and if improving will dc tomorrow to home
[2018-01-23 14:37] VITALS: BP 124/88
[2018-01-23 22:38] VITALS: BP 140/92
[2018-01-24 07:22] VITALS: BP 130/90
[2018-01-24 08:23] LABS: ABSOLUTE BASOPHIL COUNT 0 /CUMM (0.0-0.2); ABSOLUTE EOSINOPHIL COUNT 0.1 /CUMM (0.0-0.7); ABSOLUTE GRANULOCYTE CT 3.9 /CUMM (1.4-6.5); ABSOLUTE LYMPH COUNT 1.7 /CUMM (1.2-3.4); ABSOLUTE MONOCYTE COUNT 0.5 /CUMM (0.10-0.60); BASOPHIL % 0.6 % (0.0-2.0); EOSINOPHIL % 1.8 % (0-5); GRANULOCYTE % 62.5 % (42.2-75.2); HEMATOCRIT 37.4 % (42-52); MEAN CORPUSCULAR HGB 30.3 PG (27.0-31.0); MEAN CORPUSCULAR HGB CONC 33.7 G/DL (33.0-37.0); MEAN PLATELET VOLUME 11.5 FL (7.4-10.4); PLATELET COUNT 221 /CUMM (130-400); RBC DISTRIBUTION WIDTH 14.2 % (11.5-14.5); RED BLOOD CELL CT 4.16 /CUMM (4.70-6.10); WHITE BLOOD CELL COUNT 6.2 /CUMM (4.8-10.8)
--- NOTE | 2018-01-24 08:36 | PN- Housestaff ---
Sruthi Aguilar 01/24/18 0835: Subjective Follow-up For: 1. seizures due to low dilantin levels 2. Aspiration pneumonia 3. Sinus tachycardia-improved Subjective: No complaints or acute events overnight. Patient noncommunicative. Mom at bedside Review of Systems Constitutional: Reports: see HPI. 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 Most likely due to recent reduction in the Dilantin dose from 150-125 as per the mother. Patient had 3 seizures this week. Dilantin level was running low and he came to the ED on 0 3/0 3 was 9.9 and he was advised to take an extra dose of Dilantin 50 mg Patient has been on dilantin 150 BID but this was reduced to 150 AM/125 PM a few weeks ago due Assessment and plan: 1. seizures due to low dilantin levels 2. Aspiration pneumonitis, SIRS 2 3. Sinus tachycardia improved 2/2 fever, dehydration or aspiration. 4. hypernatremia As per Neuro ok to leave Dilantin dose as is and follow up as an outpatient upon discharge home today Discharge home with Augmetin suspension for 2 more days EEG showed: Abnormal due to moderate generalized slowing of the backgrounds with left anterior temporal sharp waves suggesting a potential left hemispheric seizure focus. DVT ppx Lovenox. Full code. Regular diet Problem List: 1. Seizure disorder Pain Ratin Pain Location: NA Pain Goal: Remain pain free Pain Plan: NA Tomorrow's Labs & Rationales: none Valerie Raymond 01/24/18 1451: Attending Review Statement Attending Statement Attending MD Statement: examined this patient, discuss w/resident/PA/SLACK COOPER, agreed w/resident/PA/SLACK COOPER, discussed with family, reviewed EMR data (avail), discussed with nursing Attending Assessment/Plan: D/w Dr villarreal over the phone dilantin level . pt is being dced home. will have repeat dilantin level in 10 days and will f/u with neuro as an outpt for adjustment of levels.
[2018-01-24] MEDS ORDERED: AUGMENTIN 875-1 EACH PO (12:26)
[2018-01-24] MEDS ORDERED: AUGMENTIN600 MG/5 M PO (13:08)
--- NOTE | 2018-01-25 19:30 | Discharge Summary ---
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 Most likely due to recent reduction in the Dilantin dose from 150-125 as per the mother. Patient had 3 seizures this week. Dilantin level was running low and he came to the ED on 0 3/0 3 was 9.9 and he was advised to take an extra dose of Dilantin 50 mg Patient has been on dilantin 150 BID but this was reduced to 150 AM/125 PM a few weeks ago dueto GI upset 1. seizures due to low dilantin level -He was monitored on Telemetry -Most likely his seizures were due to low Dilantin level, on admission his Dilantin level was 11.6, he had to be given multiple IV loading doses of Dilantin. The day of discharge his Dilantin level was 18.6 ,in addition he was treated with Dilantin 150 mg twice daily p.o,Phenobarbital liquid p.o. 120 every morning,Phenobarbital liquid 90 mg p.o. every afternoon,Keppra 1500 mg twice daily p.o. Neurology were onboard and guided his antiseizure medications. On discharge the patient was advised to get Dilantin level checked in 1 week of discharge and fax the results to his neurologist Dr. Jaffe 2. Aspiration pneumonitis, SIRS (tachycardia and fever on the day of admission) Blood culture negative, he was treated with IV Unasyn for possible aspiration for 5 days) he was discharged on Augmentin to finish a total course of 7 days of antibiotics 3. Sinus tachycardia improved most likely was 2/2 fever, dehydration or aspiration. 4. hypernatremia most likely was due to poor oral intake, improved - Aspiration, seizure and fall precautions at all times Full code Regular diet DVT prophylaxis with subcutaneous heparin Allergies: Coded Allergies: ceftriaxone (BLISTERS 04/23/16) cefuroxime (From Ceftin) (BLISTERS 04/23/16) cephalexin (BLISTERS 04/23/16) clindamycin (RASH, BLISTERS 04/23/16) Disposition Summary Disposition Principal Diagnosis: 1. seizures due to low dilantin levels Additional Diagnosis: 2. Aspiration pneumonia 3. Sinus tachycardia-improved Discharge Disposition: home or self care Discharge Instructions General Discharge Information Code Status: Full Code Patient's Diet: Regular diet Patient's Activity: As tolerated Follow-Up Instructions/Appts: 1please follow-up with your PCP in 1 week of discharge 2please follow-up with your neurologist in 1 week of discharge 3please get Dilantin level checked in 1 week of discharge AND FAX RESULTS TO DR. KIMBROUGH Medications at Discharge Discharge Medications: Continue taking these medications: Phenobarbital (Phenobarbital) 32.4 MG TABLET 4 Tablet ORAL Every Morning Qty = 240 Comments: PER PT MOM Phenobarbital (Phenobarbital) 32.4 MG TABLET 3 Tablet ORAL Every night Comments: PER PT MOM Levetiracetam (Keppra) 100 MG/ML SOLUTION 3 Teaspoonful ORAL TWICE DAILY Qty = 900 Comments: PER PT MOM Phenytoin (Dilantin) 50 MG TAB.CHEW 3 Tablet ORAL TWICE DAILY Comments: Last Taken: 01/24/18 Time: 9:30 AM Collagenase Clostridium Hist. (Santyl) 250 UNIT/GRAM OINT...G. 1 Unit TOPICAL DAILY Qty = 30 Comments: Last Taken: [facility] Time: Start taking the following new medications: Amoxicillin/Potassium Clav (Augmentin Es-600 Suspension) 600 MG-42.9 MG/5 ML SUSP.RECON 5 Milliliters ORAL TWICE DAILY Qty = 20 No Refills Comments: Last Taken: NOT GIVEN IN HOSPITAL (WAS RECEIVING IV UNASYN) Time: Copies To: Guerda POLO,Guerda
== END 2018-01-24 13:45 | DRG 100 ==
LOC: ERH 13:34 → 1NO 21:12 → ERHI 21:12 → ENRESERV 22:57 → 1NO 01-21 01:23 → ENPENDDIS 01-24 12:26 → ENTRNSPT 01-24 13:26 → 1NO 01-24 13:45 → CMPTRNSPT 01-24 13:55
PROVIDERS: Emergency Medicine; Internal Medicine Endocrinology, Diabetes & Metabolism; Student in an Organized Health Care Education/Training Program
DX: G40.909 Epilepsy, unspecified, not intractable, without status epilepticus (principal); J69.0 Pneumonitis due to inhalation of food and vomit; G04.01 Postinfectious acute disseminated encephalitis and encephalomyelitis (postinfectious ADEM); E87.0 Hyperosmolality and hypernatremia; T42.0X6A Underdosing of hydantoin derivatives, initial encounter; Y92.019 Unspecified place in single-family (private) house as the place of occurrence of the external cause; R00.0 Tachycardia, unspecified; R51 Headache; R62.50 Unspecified lack of expected normal physiological development in childhood; E86.0 Dehydration
CPT/HCPCS: 1NP; 80184; ERO; 36592; 71045; 82436; 87040; 87070; 87086; 87804; 87804-59; 93005; 93010; 95816; 96361; 96365; 96375; J1165; J1644

== ENCOUNTER 2018-03-20 10:57 | Emergency (ER) | payer OTHER ==
[~2018-03-20] VITALS: Ht 177.8 cm; Wt 79.4 kg
[~2018-03-20 10:57] MED LIST changes: +AUGMENTIN600 MG/5 M PO; +KEPPRA100 MG/1 M PO; -KEPPRA100 MG/ML PO; +PHENOBARBITAL32.4 M1 PO; -PHENOBARBITAL32.4 MG PO; +SANTYL30 GM TP
--- NOTE | 2018-03-20 11:08 | ED AMS/SEIZURE/WEAK/DIZZY ---
History of Present Illness General Chief Complaint: Seizure Stated Complaint: SEIZURE Source: patient Exam Limitations: no limitations Vital Signs & Intake/Output Vital Signs & Intake/Output Vital Signs Date Time Temp Pulse Resp B/P B/P Pulse O2 O2 Flow FiO2 Mean Ox Delivery Rate 03/20 1718 96.4 84 16 120/62 98 Room Air 03/20 1418 97.0 80 20 130/70 100 Nasal 2.0L Cannula 03/20 1310 100 Nasal 2.0L Cannula 03/20 1310 97.0 103 20 150/80 100 Nasal 2.0L Cannula 03/20 1132 106 20 153/88 100 Nasal 2.0L Cannula 03/20 1115 95 Nasal 2.0L Cannula 03/20 1113 82 88 Room Air 03/20 1101 98.6 88 18 141/89 Allergies Coded Allergies: ceftriaxone (BLISTERS 04/23/16) cefuroxime (From Ceftin) (BLISTERS 04/23/16) cephalexin (BLISTERS 04/23/16) clindamycin (RASH, BLISTERS 04/23/16) Reconcile Medications Levetiracetam (Keppra) 100 MG/ML SOLUTION 3 TSP PO BID SEIZURES (Reported) Phenobarbital 32.4 MG TABLET 4 TAB PO DAILY SEIZURES (Reported) Phenobarbital 32.4 MG TABLET 3 TAB PO QPM SEIZURES (Reported) Phenytoin (Dilantin) 50 MG TAB.CHEW 3 TAB PO BID SEIZURES (Reported) Triage Note: BROUGHT TO ED VIA STRETCHER, HAD ?SEIZURE ON WORK VAN. PMH:MR WITH SEIZURES. NO SEIZURE ACTIVITY AT PRESENT. Triage Nurses Notes Reviewed? yes HPI: Patient presents for evaluation of a seizure. According to nursing, the patient was not having seizure activity when placed into the room. However prior to my evaluation the patient began having seizure activity of the right upper and lower extremities. The patient was interactive during the seizure and was able to focus gaze on me when I spoke with him. He was having difficulty answering questions given the active seizure (clinical presentation consistent with partial psychomotor seizure). Past History Travel History Traveled to [place] past 21 day No Medical History Any Pertinent Medical History? 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 Hx Contributory? No Review of Systems Review of Systems Constitutional: Reports: see HPI. Neurological/Psychological: Reports: tonic-clonic seizures. Comments Patient unable to provide review of systems Physical Exam Physical Exam General Appearance: see below Comments: Gen.: Well-nourished, well-developed, no acute respiratory distress. Head: Normocephalic, atraumatic. Eyes: Normal inspection bilaterally, patient fixes gaze with name calling Ears: Normal inspection bilaterally Nose: Normal inspection Throat/mouth : Moist mucosa Face: Tonic-clonic activity of the mouth Neck: Supple, full range of motion, no goiter, no carotid bruits, equal carotid pulses Heart: Regular rate and rhythm, no murmurs rubs or gallops Lungs: Clear to auscultation bilaterally with normal air entry Chest: Nontender Back: Normal range of motion Abdomen: Nondistended, normal bowel sounds Extremities: Tonic-clonic activity of the right upper and right lower extremity without cyanosis Neurologic: Cranial nerves 2 through 12 intact grossly, speech is dysarthric Skin: warm and dry Psychiatric: Calm, cooperative, no apparent delusions or hallucinations Core Measures ACS in differential dx? No CVA/TIA Diagnosis No Sepsis Present: No Sepsis Focused Exam Completed? No Progress Differential Diagnosis: arrythmia, CVA/stroke, electrolyte imbalance, hypoglycemia, hypoxia, seizure disorder Plan of Care: Orders Procedure Date/time Status Add-on Test (ER Only) 03/20 1335 Active Seizure Precautions 03/20 1142 Active Saline Lock 03/20 1126 Active URINALYSIS 03/20 1126 Active THYROID STIMULATING HORMONE 03/20 1126 Complete PHOSPHORUS 03/20 1126 Complete MAGNESIUM 03/20 1126 Complete DILANTIN 03/20 1126 Complete COMPREHENSIVE METABOLIC PANEL 03/20 1126 Complete CBC WITHOUT DIFFERENTIAL 03/20 1126 Complete Laboratory Tests 03/20/18 1350: Ref Lab Test Result Pending 03/20/18 1220: Anion Gap 11, Estimated GFR > 60, BUN/Creatinine Ratio 6.7 L, Glucose 89, Calcium 8.3 L, Phosphorus 3.9, Magnesium 1.7, Total Bilirubin 0.5, AST 23, ALT 17 L, Alkaline Phosphatase 76, Total Protein 7.4, Albumin 4.2, Globulin 3.2, Albumin/Globulin Ratio 1.3, TSH 3.110, Phenytoin 16.5 03/20/18 1150: CBC w Diff NO MAN DIFF REQ, RBC 4.38 L, MCV 89.9, MCH 30.6, MCHC 34.0, RDW 14.0 , MPV 10.3, Gran % 68.9, Lymphocytes % 22.6, Monocytes % 7.5, Eosinophils % 0.6, Basophils % 0.4, Absolute Granulocytes 4.4, Absolute Lymphocytes 1.4, Absolute Monocytes 0.5, Absolute Eosinophils 0, Absolute Basophils 0 Initial ED EKG: none Comments: 03/20/2018 11:15:44 AM patient's seizure has responded incompletely to an initial 1 mg dose of IV Ativan. His extremity tremors have stopped but he is still showing tremors of the left side of the face. Second dose of IV Ativan 1 mg ordered. Patient's nurse notifies me that his mother states he has a "seizure plan" and she will bring this to the emergency department. 03/20/2018 11:25:27 AM upon reevaluation there appears to be no seizure activity at this time. 03/20/2018 11:56:59 AM Adam began having another seizure. Patient's mother was with him in the room when it began and she agrees with additional Ativan. This has been ordered. I will discuss this patient's emergency department visit with Dr. Mtz, his neurologist. 03/20/2018 1:36:21 PM patient's case discussed with Dr. Mtz who feels that so long as Adam wakes up and appears at baseline, he can be managed as an outpatient. No changes to patient's current medication regimen for now. 03/20/2018 6:53:33 PM I have reevaluated Adam, he is now awake although still a little groggy. He offers no complaint at this time. He was able to converse with his brother over the phone according to his mother who has been at the bedside. She feels comfortable with him returning home. Departure Departure Disposition: HOME OR SELF CARE Condition: Stable Clinical Impression Primary Impression: Breakthrough seizure Referrals: Patient Has No Primary Care Dr (PCP/Family) Additional Instructions: Continue current antiseizure medications. Follow-up with Dr. Mtz on Friday. Notify your primary care physician of this emergency department visit and treatment plan. Return if any concerns or sudden worsening. Please note that there might be incidental findings in your evaluation that are unrelated to the current emergency department visit. Please notify your primary care doctor about this emergency department visit in order to obtain and review all of the testing performed so that these incidental findings can be monitored as needed. If you had an x-ray performed, please understand that some fractures may not be seen on the initial set of x-rays. If your symptoms persist you might need a repeat set of x-rays to check for such a fracture. If you had a laceration evaluated, please understand that foreign bodies such as glass or wood may not be visible to the naked eye or on plain x-rays. If the wound becomes red, swollen, increasingly more painful or if there is any drainage from the wound, please have it reevaluated by a physician for the possibility of a retained foreign body. If you're unable to follow up as outlined in the discharge instructions please return to the emergency department. Thank you for choosing the [facility] Emergency Department for your care. It was a pleasure to serve you today. Ankit Slaughter M.D. [facility] Departure Forms: Customer Survey General Discharge Information Critical Care Note Critical Care Note Critical Care Time: 30-74 min
[2018-03-20 11:56] LABS: ABSOLUTE BASOPHIL COUNT 0 /CUMM (0.0-0.2); ABSOLUTE EOSINOPHIL COUNT 0 /CUMM (0.0-0.7); ABSOLUTE GRANULOCYTE CT 4.4 /CUMM (1.4-6.5); ABSOLUTE LYMPH COUNT 1.4 /CUMM (1.2-3.4); ABSOLUTE MONOCYTE COUNT 0.5 /CUMM (0.10-0.60); BASOPHIL % 0.4 % (0.0-2.0); EOSINOPHIL % 0.6 % (0-5); GRANULOCYTE % 68.9 % (42.2-75.2); HEMATOCRIT 39.4 % (42-52); MEAN CORPUSCULAR HGB 30.6 PG (27.0-31.0); MEAN CORPUSCULAR VOLUME 89.9 FL (80.0-94.0); MEAN PLATELET VOLUME 10.3 FL (7.4-10.4); PLATELET COUNT 221 /CUMM (130-400); RED BLOOD CELL CT 4.38 /CUMM (4.70-6.10); WHITE BLOOD CELL COUNT 6.4 /CUMM (4.8-10.8)
[2018-03-20 19:08] VITALS: BP 126/68
== END 2018-03-20 19:15 ==
LOC: ERH 10:57
PROVIDERS: Emergency Medicine
DX: R56.9 Unspecified convulsions (principal)
CPT/HCPCS: 80184; 96374; 96376; 99291